=== PATIENT | male | born 1950 | race Caucasian/White ===

== ENCOUNTER 2017-02-24 01:50 | Observation (INO) | payer OTHER ==
[2017-02-24] MEDS ORDERED: NS 1,000 ML IV ONE (01:55)
--- NOTE | 2017-02-24 01:55 | EDPHY ---
H & P HPI/ROS: HPI CHIEF COMPLAINT: Syncope, fall, urinary incontinence HISTORY OF PRESENT ILLNESS: Patient very pleasant 67-year-old male significant past medical history afk-ixskmfs-yufxrneee diabetes however does not take any diabetes medications, who presents to the emergency room by EMS upon arrival he has a GCS 15 alert or x4. He was found to be lying supine in the middle of his family room hard floors he is unsure exactly how he arrived on the ground. Patient tells me that he has no recollection of the events. Woke up lying on his back. He does not remember anything that happened. He denies preceding symptoms specifically denies chest pain, shortness of breath, palpitations, headache, numbness or tingling or focal weakness. Upon arrival here in the emergency room is a GCS 15 is alert and orient x4 he is in a cervical collar. It is stated by EMS his blood sugars over 400. Patient has no complaints. He has obvious facial trauma with a swollen nose. He also noted be urinary incontinence. No history of syncope, PE, ACS. Patient does tell me that he does have a history of angina, also he drinks a bottle wine fairly often he did have an entire bottle wine this evening. Also endorses sometimes medical marijuana. He does tell me over the past month he has had some frequent angina pain in his chest however non in the past 48 hours. Past Medical History: Nvi-flbhjgb-rvvdbfhag diabetes, angina Past Surgical History: No recent surgical history Social History: Endorses frequent alcohol use includes a bottle of wine last bottle of wine this evening and then 2 days ago, medical marijuana, denies tobacco or other illicit drugs Family History: Noncontributory ROS REVIEW OF SYSTEMS: A comprehensive 10 point review of systems is otherwise negative aside from elements mentioned in the history of present illness. Exam Constitutional triage nursing summary reviewed, vital signs reviewed, awake/ alert. Noted be urinary Contin. Eyes normal conjunctivae and sclera, EOMI, PERRLA. HENT head/neck: patient is in a cervical collar, no midline cervical spine pain, head exam is atraumatic except for nasal bridge swelling and dry blood in both nares, no septal hematoma on exam, normal inspection, moist mucus membranes, no epistaxis, neck supple/ no meningismus, no raccoon eyes. Respiratory clear to auscultation bilaterally, normal breath sounds, no respiratory distress, no wheezing. Cardiovascular rate normal, regular rhythm, no murmur, no edema, distal pulses normal. Gastrointestinal soft, non-tender, no rebound, no guarding, normal bowel sounds, no distension, no pulsatile mass. Genitourinary no CVA tenderness. Musculoskeletal no midline vertebral tenderness, full range of motion, no calf swelling, no tenderness of extremities, no meningismus, good pulses, neurovascularly intact. Skin pink, warm, & dry, no rash, skin atraumatic. Neurologic awake, alert and oriented x 3, AAOx3, moves all 4 extremities equally, motor intact, sensory intact, CN II-XII intact, normal cerebellar, normal vision, normal speech. Psychiatric normal mood/affect. Heme/Lymph/Immune no lymphadenopathy. Differential Diagnosis: Includes but is not limited to in a particular order: Vasovagal syncope, orthostatic syncope, seizure, dehydration, electrolyte disturbance, closed head injury, stroke, brain bleed, cardiac arrhythmia Medical Decision Making: Plan for this patient IV will be established obtain blood work, patient be placed on full patient monitor he will need EKG, cardiac marker, will have a CT scan head, neck, face he will need a chest x-ray. Will be hydrated. We will check a blood sugar. Given this patient had a unwitnessed syncopal episode does not know what happened urinary incontinence with facial trauma most likely he will need to stay overnight for further evaluation. Re-evaluation: 0249AM: Patient's serum glucose noted to be 400. No acidosis specifically bicarb is normal. He will be hydrated with normal saline 1st L been given 2nd L been ordered. Alcohol level is pending. CT scan of the head without IV contrast The results of the study are negative The study was read by Dr. Langley I viewed the images myself on the PACS system. CT scan of the cervical spine without IV contrast. The results of the study are DJD, Calcifications of carotids The study was read by Dr. Langley . I viewed the images myself on the PACS system. CT scan of the maxillofacial without IV contrast. The results of the study are Nasal bone fracture. The study was read by Dr. Langley I viewed the images myself on the PACS system. ED x-ray chest one view: Negative for acute cardiopulmonary disease. EKG interpretation by me on record in [facility] system. Impression time of EKG 2:00 a.m., this is sinus tachycardia rate of 100, otherwise no acute ischemic changes appreciated specifically no ST elevation, ST depression T-wave abnormalities. No signs of cardiac arrhythmia no prolonged intervals. 0302:Re-evaluation at this time resting comfortably. No complaints at this time. Patient need to be admitted for syncope with urinary incontinence without a great explanation. Is also noted alcohol levels close to 300. His blood sugars close to 400 without any signs of DKA. Reason for admission is uncontrolled diabetes, syncope with unexplained cause, also tells me over the past few months he has had worsening angina or chest discomfort. No chest pain the past 48 hours. Troponin negative EKG is nonischemic. CT scan showed only a very small nasal bone fracture otherwise unremarkable CTs. Spoke with the hospitalist service Dr. Jc who agrees to admit this patient for unexplained syncope. This possible syncope is from dehydration hyperglycemia and alcohol intoxication. Source: Patient, EMS Constitutional: Initial Vital Signs Temperature (C) 36.5 C 02/24/17 01:55 Heart Rate 98 02/24/17 01:55 Respiratory Rate 16 02/24/17 01:55 Blood Pressure 172/89 H 02/24/17 01:55 O2 Sat (%) 97 02/24/17 01:55 O2 Delivery Mode Room Air Allergies/Adverse Reactions: Penicillins Allergy (Verified 02/24/17 02:00) Home Medications: Medication Instructions Recorded Metformin HCl [Metformin Hcl Er] 750 mg PO 07/30/11 Aspirin 02/24/17 Medical Decision Making - Data Points Laboratory Results: Laboratory Results 02/24/17 01:45 02/24/17 01:45 02/24/17 02/24/17 02/24/17 02:50 01:45 01:45 WBC RBC Hgb Hct MCV MCH MCHC RDW Plt Count MPV Neut % (Auto) Lymph % (Auto) [place] % (Auto) Eos % (Auto) Baso % (Auto) Nucleat RBC Rel Count Absolute Neuts (auto) Absolute Lymphs (auto) Absolute Monos (auto) Absolute Eos (auto) Absolute Basos (auto) Absolute Nucleated RBC Immature Gran % Immature Gran # PT INR APTT Sodium 142 mEq/L mEq/L (134-144) Potassium 4.0 mEq/L mEq/L (3.5-5.2) Chloride 100 mEq/L mEq/L (97-110) Carbon Dioxide 22 mEq/l mEq/l (22-31) Anion Gap 20 mEq/L H mEq/L (8-16) BUN 16 mg/dL mg/dL (7-23) Creatinine 0.8 mg/dL mg/dL (0.7-1.3) Estimated GFR > 60 Glucose 399 mg/dL H mg/dL (70-100) Calcium 9.7 mg/dL mg/dL (8.5-10.4) Magnesium 1.8 mg/dL mg/dL (1.6-2.3) Total Bilirubin 0.6 mg/dL mg/dL (0.1-1.4) Conjugated Bilirubin 0.4 mg/dL mg/dL (0.0-0.5) Unconjugated Bilirubin 0.2 mg/dL mg/dL (0.0-1.1) AST 21 IU/L IU/L (17-59) ALT 24 IU/L IU/L (21-72) Alkaline Phosphatase 135 IU/L H IU/L (38-126) Creatine Kinase 132 IU/L IU/L (0-224) CK-MB (CK-2) Fraction 3.41 ng/mL H ng/mL (0-3.19) CK-MB (CK-2) % 2.6 % % (0.0-4.0) Creatine Kinase Interp NEGATIVE (NEGATIVE) Troponin I < 0.012 ng/mL ng/mL (0-0.034) NT-Pro-B Natriuret Pep 99 pg/mL pg/mL (0-125) Total Protein 7.2 g/dL g/dL (6.3-8.2) Albumin 4.7 g/dL g/dL (3.5-5.0) Lipase 252.0 IU/L IU/L (23-300) Urine Color Pending Urine Appearance Pending Urine pH Pending Ur Specific [place] Pending Urine Protein Pending Urine Ketones Pending Urine Blood Pending Urine Nitrate Pending Urine Bilirubin Pending Urine Urobilinogen Pending Ur Leukocyte Esterase Pending Ur Culture Indicated? Pending Urine Glucose Pending Ethyl Alcohol 291 mg/dL H mg/dL (0-10) 02/24/17 02/24/17 01:45 01:45 WBC 12.17 10^3/uL H 10^3/uL (3.80-9.50) RBC 4.94 10^6/uL 10^6/uL (4.40-6.38) Hgb 15.0 g/dL g/dL (13.7-17.5) Hct 42.3 % % (40.0-51.0) MCV 85.6 fL fL (81.5-99.8) MCH 30.4 pg pg (27.9-34.1) MCHC 35.5 g/dL g/dL (32.4-36.7) RDW 11.9 % % (11.5-15.2) Plt Count 205 10^3/uL 10^3/uL (150-400) MPV 9.4 fL fL (8.7-11.7) Neut % (Auto) 70.5 % % (39.3-74.2) Lymph % (Auto) 22.4 % % (15.0-45.0) [place] % (Auto) 5.4 % % (4.5-13.0) Eos % (Auto) 0.9 % % (0.6-7.6) Baso % (Auto) 0.2 % L % (0.3-1.7) Nucleat RBC Rel Count 0.0 % % (0.0-0.2) Absolute Neuts (auto) 8.58 10^3/uL H 10^3/uL (1.70-6.50) Absolute Lymphs (auto) 2.72 10^3/uL 10^3/uL (1.00-3.00) Absolute Monos (auto) 0.66 10^3/uL 10^3/uL (0.30-0.80) Absolute Eos (auto) 0.11 10^3/uL 10^3/uL (0.03-0.40) Absolute Basos (auto) 0.03 10^3/uL 10^3/uL (0.02-0.10) Absolute Nucleated RBC 0.00 10^3/uL 10^3/uL (0-0.01) Immature Gran % 0.6 % % (0.0-1.1) Immature Gran # 0.07 10^3/uL 10^3/uL (0.00-0.10) PT 11.9 SEC L SEC (12.0-15.0) INR 0.89 (0.83-1.16) APTT 25.4 SEC SEC (23.0-38.0) Sodium Potassium Chloride Carbon Dioxide Anion Gap BUN Creatinine Estimated GFR Glucose Calcium Magnesium Total Bilirubin Conjugated Bilirubin Unconjugated Bilirubin AST ALT Alkaline Phosphatase Creatine Kinase CK-MB (CK-2) Fraction CK-MB (CK-2) % Creatine Kinase Interp Troponin I NT-Pro-B Natriuret Pep Total Protein Albumin Lipase Urine Color Urine Appearance Urine pH Ur Specific [place] Urine Protein Urine Ketones Urine Blood Urine Nitrate Urine Bilirubin Urine Urobilinogen Ur Leukocyte Esterase Ur Culture Indicated? Urine Glucose Ethyl Alcohol Medications Given: Discontinued Medications Sodium Chloride (Ns) 1,000 mls @ 0 mls/hr IV ONCE ONE PRN Reason: Wide Open Stop: 02/24/17 01:56 Last Admin: 02/24/17 02:18 Dose: 1,000 mls Departure - Departure Disposition: [facility] Inpatient Acute Clinical Impression: Syncope and collapse, Hyperglycemia Alcohol intoxication Qualifiers: Complication of substance-induced condition: uncomplicated Qualified Code(s): F10.120 - Alcohol abuse with intoxication, uncomplicated Urinary incontinence Qualifiers: Urinary Incontinence type: unspecified incontinence Qualified Code(s): R32 - Unspecified urinary incontinence Nasal bone fracture Qualifiers: Encounter type: initial encounter Fracture type: closed Qualified Code(s): S02.2XXA - Fracture of nasal bones, initial encounter for closed fracture Condition: Fair Referrals: Patient,NotPresent [Unknown] - As per Instructions
--- NOTE | 2017-02-24 02:02 | CPEKG ---
Heart Rate: 100 RR Interval: 600 P-R Interval: 164 QRSD Interval: 84 QT Interval: 368 QTC Interval: 475 P Decker: 68 QRS Decker: 37 T Wave Decker: 19 EKG Severity - OTHERWISE NORMAL ECG - EKG Impression: SINUS TACHYCARDIA Electronically Signed By: Kane Hatch 24-Feb-2017 06:46:10
[2017-02-24 02:18] LABS: % IMMATURE GRANULYOCYTES 0.6 % (0.0-1.1); ABSOLUTE IMMATURE GRANULOCYTES 0.07 10^3/uL (0.00-0.10); ADD DIFF? NO; ADD MORPH? NO; ADD SCAN? NO; ATYPICAL LYMPHOCYTE FLAG 0 (0-99); FRAGMENT RBC FLAG 0 (0-99); HEMATOCRIT 42.3 % (40.0-51.0); LEFT SHIFT FLG 0 (0-99); LIPEMIA HEMOLYSIS FLAG 90 (0-99); MEAN CELL HEMOGLOBIN 30.4 pg (27.9-34.1); MEAN CELL HEMOGLOBIN CONCENTR. 35.5 g/dL (32.4-36.7); MEAN CELL VOLUME 85.6 fL (81.5-99.8); MEAN PLATELET VOLUME 9.4 fL (8.7-11.7); PLATELET CLUMPS FLAG 10 (0-99); PLATELET COUNT 205 10^3/uL (150-400); RED BLOOD CELL COUNT 4.94 10^6/uL (4.40-6.38); RED CELL DISTRIBUTION WIDTH 11.9 % (11.5-15.2)
[2017-02-24 02:23] LABS: INR 0.89 (0.83-1.16); PROTIME(PATIENT) 11.9 SEC (12.0-15.0)
[2017-02-24 02:24] LABS: APTT 25.4 SEC (23.0-38.0)
[2017-02-24 02:25] LABS: ALANINE AMINOTRANSFERASE 24 IU/L (21-72); ALBUMIN 4.7 g/dL (3.5-5.0); ALKALINE PHOSPHATASE 135 IU/L (38-126); ANION GAP 20 mEq/L (8-16); ASPARTATE AMINOTRANSFERASE 21 IU/L (17-59); BILIRUBIN,TOTAL 0.6 mg/dL (0.1-1.4); BILIRUBIN-CONJUGATED 0.4 mg/dL (0.0-0.5); BILIRUBIN-UNCONJUGATED 0.2 mg/dL (0.0-1.1); CALCIUM 9.7 mg/dL (8.5-10.4); CARBON DIOXIDE 22 mEq/l (22-31); CHLORIDE 100 mEq/L (97-110); CREATININE 0.8 mg/dL (0.7-1.3); GLOMERULAR FILTRATION RATE > 60; GLUCOSE 399 mg/dL (70-100); MAGNESIUM 1.8 mg/dL (1.6-2.3); SODIUM 142 mEq/L (134-144); TOTAL PROTEIN 7.2 g/dL (6.3-8.2)
[2017-02-24 02:37] LABS: TROPONIN I < 0.012 ng/mL (0-0.034)
[2017-02-24 02:41] LABS: CK-MB INTERPRETATION NEGATIVE (NEGATIVE); CREATINE KINASE-MB FRACTION 3.41 ng/mL (0-3.19)
[2017-02-24 03:02] LABS: ETHANOL SERUM 291 mg/dL (0-10)
[2017-02-24 03:22] LABS: COLOR PALE YELLOW; LEUKOCYTE ESTERASE,URINE NEGATIVE (NEGATIVE); NITRITE,URINE NEGATIVE (NEGATIVE)
[2017-02-24 03:27] LABS: MUCUS TRACE /lpf (NONE-1+)
[2017-02-24] MEDS ORDERED: ONDANSETRON 4 MG/2 ML VIAL IVP PRN (04:15)
[2017-02-24] MEDS ORDERED: ACETAMINOPHEN 325 MG TAB PO PRN (04:15)
[2017-02-24] MEDS ORDERED: ONDANSETRON DISINTEGRATING 4 MG TAB PO PRN (04:15)
[2017-02-24] MEDS ORDERED: LORazepam 0.5 MG TAB PO PRN (04:15)
[2017-02-24] MEDS ORDERED: D50W 25 GM/50 ML SYR IVP PRN (04:15)
[2017-02-24] MEDS ORDERED: NS 1,000 ML IV SCH (04:15)
[2017-02-24] MEDS ORDERED: PROMETHAZINE HCL 25 MG TAB PO PRN (04:15)
[2017-02-24] MEDS ORDERED: oxyCODONE IR 5 MG TAB PO PRN (04:15)
[2017-02-24 07:31] VITALS: RESP 15
--- NOTE | 2017-02-24 07:55 | GHP ---
[f rep st] HISTORY AND PHYSICAL DATE OF ADMISSION: 02/24/2017 CHIEF COMPLAINT: Fall versus syncope. HISTORY OF PRESENT ILLNESS: This is a 67-year-old man, with past medical history of type 2 diabetes as well as sciatic pain and angina, who presents after falling at home and landing on his face and chest. Unfortunately, patient has no recollection of the event itself and only very limited recolle ction of events that followed the actual fall. He notes that he was watching TV and drank a bottle of wine which is not terribly unusual for him, he notes that he drinks about 1 bottle of wine every other day. He denies feeling particularly intoxicated but got up from the couch and the last thing he remembers he was walking towards the kitchen. He has been doing a significant amount of construc tion in his house recently and notes that the kitchen was fairly cluttered with construction materia ls. The next thing he knows, he woke up on the floor, again he has very little memory of this time either but states he has some recollection of having difficulty making his way over to the phone in order to call 911. He does not recall whatsoever the events preceding falling. He denies this ever having happened to him in the past. He denies any current complaints other than pain in his nose f rom where he fell. He does note that he has had issues with chronic angina and that this has been w orse in the last couple of months. He was seen once in the emergency department for similar symptom s back in 2010 and states he has had a work up since then but really is unable to tell me what tests were performed. In terms of his diabetes, he has had complications including retinopathy and perip heral neuropathy. In the past, he has had issues with medication compliance and it sounds as if marley abraham currently he does not regularly see a physician. He also notes that he has had balance issues for some time now. He really has a hard time saying exactly how long that has been but notes that, for instance if he shuts his eyes while in the shower he will fall over. He attributes this to his age . He has been seen by neurology in the past but it sounds like this was for different issues. He d enies any new numbness or weakness. He denies any real change in his vision though he states he has intermittent vision problems that he attributes to his diabetes. He does have some chronic numbnes s in his bilateral feet secondary to his diabetes. PAST MEDICAL HISTORY: 1. Diabetes type 2, uncontrolled. Complications including retinopathy and peripheral neuropathy. 2. Sciatic back pain. 3. Chronic angina. PAST SURGICAL HISTORY: Tonsillectomy. FAMILY HISTORY: Father of an CT at age 38. Mother is alive at age 93 but has health issues th at include colon cancer and breast cancer. Both of these were diagnosed in her 70s or 80s. Had a al mitchell who of complications of type 1 diabetes. SOCIAL HISTORY: Patient is currently retired. He is and he and his spend their time b [facility] and [place], his is currently in [place] working. He has remote history of t obacco use, none currently. He drinks alcohol regularly and fairly heavily-he notes that he drinks 1 bottle of wine every other day. Last drink was this evening. MEDICATIONS: Home medications include Metformin and aspirin. ALLERGIES: Include penicillin. PHYSICAL EXAMINATION: Vital Signs: BP 154/79, heart rate 100, respiratory rate 19, 02 sats 96% on room air, temperature is 36.6. General Appearance: This is a well-developed, well-nourished man. He is awake and alert. He is in no acute distress. Eyes: Anicteric. He has bilateral ecchymosis surrounding his orbits. Nose: Swollen and mildly deformed with lacerations to the surface, orophar ynx is clear. Cardiovascular: RRR, no MRG. Pulmonary: CTA bilaterally, normal work of breathing. Abdomen: Soft, nontender, positive bowel sounds. Extremities: No clubbing, cyanosis or edema. Skin: Warm, dry, well perfused. Neuro/Psych: Patient is oriented and appropriate. His cranial ne rves are intact, strength and sensation are intact and equal bilaterally, rapid alternating movement s are normal and symmetrical, gait was not assessed though patient able to sit up and move around qu ite well independently. CLINICAL DATA: Labs reviewed. Significant for glucose of 399, troponin is less than 0.012, proBNP of 99, white blood cell count of 12.17, hematocrit of 42.3. Coags are within normal limits. Urinal ysis showing 1+ ketones, 1+ blood, 3+ glucose. LFTs are within normal limits. Blood alcohol level on arrival was 191. EKG personally reviewed and interpreted shows sinus tachycardia without clear ischemic changes. Chest x-ray personally reviewed and interpreted showing no acute abnormalities. Head CT showing a mildly depressed nasal fracture and septum. Degenerative change to the C-spine wi thout fracture. Head CT is negative. ASSESSMENT AND PLAN: This is a 67-year-old man with past medical history of diabetes, presenting wi th presumed syncopal event. 1. Syncope. This is presumed based on the history, though patient seems reluctant to believe that. Again, it sounds as if he had no warning and sustained fairly significant injuries including a shirlene al fracture suggesting that he did not have time to prepare himself for this syncope. He is being m onitored on telemetry with serial troponins. Echocardiogram will be performed in the morning. [place] ld his initial evaluation be unremarkable and he be safe for discharge, would recommend that he be d ischarged with a Holter monitor. Again, I have a high concern for cardiogenic syncope given the his tory of no warning whatsoever. However, clearly this did occur while patient was significantly into xicated, so his history is limited secondary to that. 2. Angina. Patient complaining of several months of worsening chest pain. He notes this has been present for quite some time. In looking back, there is an ER note in 2010 where he complained of th is as well. EKG reviewed is reassuring. Again, work up including tele monitoring, serial troponins and echocardiogram to be performed. Pending results of echocardiogram, further ischemic work up ve rsus followup with cardiology likely warranted. 3. Uncontrolled diabetes with complications including retinopathy and neuropathy. He is on Metform in only as an outpatient and presents with a glucose of 400. Start sliding scale, obtain hemoglobin A1c. Will start diabetic diet and ask for a dietary consultation. 4. Gait instability. Patient complaining of fairly longstanding history of gait instability and torsten chen describing what sounds like a positive Romberg. Query if this is secondary to his peripheral neuropathy and perhaps associated proprioceptive dysfunction. Other consideration would be for alco hol related cerebellar changes and/or Wernicke's. At the time of my evaluation, patient does seem t o be mentating normally without any extraocular abnormalities, so will hold off on high dose thiamin e. Will start regular multivitamin, thiamine, folate, however. Will ask PT/OT to evaluate and cons ider further evaluation pending assessment of his gait. Again, this was not assessed as he was note d to be unstable in the ER and they did have concerns for him falling. 5. Alcohol abuse. Again, patient presenting with a BAL of 291 and a history of drinking a full bot tle of wine every other day. He currently appears to be sober and his last drink was only several h ours ago. Will monitor for signs and symptoms of withdrawal. He denies ever having withdrawal in t he past. 6. Question rhabdomyolysis. Patient noted to have 1+ blood without red blood cells on UA in the se tting of having been down for an unknown period of time. Will obtain a creatinine kinase level and monitor. 7. Leukocytosis. I suspect this is stress response. He does not have any signs or symptoms of inf ection. 8. Hypertension. Blood pressure mildly elevated in the setting of being in the ER. Suspect this i s likely stress related and will monitor. He is not on any antihypertensives at baseline. 9. Nasal fracture. This is mildly depressed nasal fracture and septum noted on face CT. Reviewed with ER doc and likely does not require any intervention a does not appear to be malaligned. He macario uld likely followup with ENT as an outpatient, however. If he has acute issues while in house, this could be arranged as an inpatient instead. 10. Disposition. Observation status. I expect a less than 48 hour stay for evaluation and managem ent of above. 11. Patient's is under my care. All records reviewed and summarized in HPI and past medical histor y. Care plan reviewed with the ER physician including plans for work up with syncope. /[id number]/MODL
[2017-02-24 07:58] LABS: TROPONIN I < 0.012 ng/mL (0-0.034)
--- NOTE | 2017-02-24 08:11 | CPEKG ---
Heart Rate: 108 RR Interval: 556 P-R Interval: 156 QRSD Interval: 78 QT Interval: 344 QTC Interval: 461 P [place]: 70 QRS [place]: 53 T Wave [place]: -60 EKG Severity - BORDERLINE ECG - EKG Impression: SINUS TACHYCARDIA EKG Impression: DIFFUSE ST-T WAVE ABNORMALITIES. CONSIDER ISCHEMIA--NEW SINCE FEBRUARY 24, 2017, EKG Impression: 2:00 Electronically Signed By: Kurt Valentino 24-Feb-2017 08:31:41
[2017-02-24] MEDS: INSULIN LISPRO 100 UNIT/ML SC SCH ×2 (08:44→13:11)
[2017-02-24] MEDS ORDERED: THIAMINE HCL 100 MG TAB PO SCH (09:00)
[2017-02-24] MEDS ORDERED: FOLIC ACID 1 MG TAB PO SCH (09:00)
[2017-02-24] MEDS ORDERED: MULTIVITAMINS 1 EACH TAB PO SCH (09:00)
[2017-02-24] MEDS ORDERED: ENOXAPARIN 40 MG/0.4 ML SYR SC SCH (09:00)
--- NOTE | 2017-02-24 10:30 | ECHO ---
[id number] + + [address] : : [place] [address] : : [phone] + Adult Echocardiographic Report + --------+ :Name: CAITLIN LACEY HStudy Date: 02/24/2017 08:14 AM : : Hospital Admission Number: [id number] Locat ion: 216: :: 1950 Gender: Male Height: 70 in : :Age: 67 yrs Race: WH Weight: 180 l b : :Reason For Study: syncope : : BSA: 2.0 mete rs2 : + --------+ MMode/2D Measurements \T\ Calculations IVSd: 1.3 cm LVIDd: 4.1 cm FS: 46.2 % Ao root diam: LVPWd: 1.3 cm LVIDs: 2.2 cm EDV(Teich): 3.7 cm 75.6 ml LA dimension: ESV(Teich): 3.7 cm 16.6 ml EF(Teich): 78.0 % LVLd ap4: 8.3 cm SV(MOD-sp4): EDV(MOD-sp4): 58.0 ml 85.0 ml LVLs ap4: 6.1 cm ESV(MOD-sp4): 27.0 ml EF(MOD-sp4): 68.2 % Normal Measurement Values: + + :LVIDd (3.5-5.7cm) IVSd (0.6-1.1cm) LVPWd (0.6-1.1cm) Aortic Root (2.0-3.7cm)Left Atrium (1.5-4.0cm): :LV Vol(d) (76-115ml) LV Vol(s) (29-48ml) Ejec Fraction (50-65%)PV Alan (0.6- 1.2m/s) TV Alan (0.4-1.0m/s) : :MV E Alan (0.8-1.0m/s)MV A Alan (0.3-1.0m/s)LVOT Alan (0.7-1.2m/s) Asc Ao Alan ( 0.9-1.8m/s) : + + Doppler Measurements \T\ Calculations MV E max alan: 69.6 cm/sec Ao V2 max: 133.7 cm/sec MV A max alan: 101.7 cm/sec Ao max P.1 mmHg MV E/A: 0.68 Left Ventricle The left ventricle is normal in size and function. There is mild concentric left ventricular hypertrophy. The left ventricle is hyperdynamic. Ejection Fraction = 70-75%. There is Doppler evidence for diastolic dysfunction. No regional wall motion abnormalities noted. Right Ventricle The right ventricle is normal in size and function. Atria The left atrial size is normal. Right atrial size is normal. Mitral Valve The mitral valve is normal in structure and function. There is trace mitral regurgitation. Tricuspid Valve Normal tricuspid valve. No tricuspid regurgitation. Aortic Valve The aortic valve is trileaflet. The aortic valve opens well. There is no aortic stenosis. There is no aortic insufficiency. Pulmonic Valve The pulmonic valve is not well visualized. trace to mild pulmonic valvular regurgitation. Great Vessels The aortic root is normal size. Pericardium/Pleural There is no pericardial effusion. Conclusion A complete two-dimensional transthoracic echocardiogram was performed (2D, M-mode, Doppler and color flow Doppler). (1) Left ventricular systolic ejection fraction was normal (70%) - normal wall motion (2) No left ventricular hypertrophy (3) Diastolic dysfunction was present (4) Normal right ventricular size and function (5) Normal atrial dimensions (6) Trace mitral regurgitation (7) Trileaflet aortic valve without sclerosis or insufficiency (8) Grossly normal tricuspid valve (9) Poor visualization of the pulmonic valve (10) No comparison echocardiograms Final Reading Physician: Victorino Hercules signed on 02/24/2017 10:29 AM Ordering Physician: Zev Jc Performed By: Irina José RDCS
[2017-02-24 11:33] VITALS: BP 142/86; PULSE 102; TEMP 99.7; O2SAT 95
[2017-02-24] MEDS ORDERED: ASPIRIN EC 325 MG TAB PO PRN (11:58)
--- NOTE | 2017-02-24 12:39 | GDS ---
[f rep st] DISCHARGE SUMMARY CHIEF COMPLAINT: 1. Syncope. 2. Mild nasal/septum fracture. 3. Uncontrolled diabetes. 4. Sciatic back pain. 5. Chronic angina. 6. Alcohol abuse. 7. Gait instability. HISTORY: This is a 67-year-old man with type 2 diabetes, sciatic pain, peripheral neuropathy, and angina, presenting after falling at home and landing on his face and chest. He has no recollection of the event itself, and limited recall of the events following. He knows that he was watching TV and drank a bottle of wine, which is not unusual for him, which he drinks every other day. He got up from the couch and the last thing he remembers was walking towards the kitchen. 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 The next thing he knew he awoke on the floor, and made his way to call 911. He denies any prodromal symptoms including chest pain , shortness of breath, nausea, vomiting, or palpitations, but really cannot recall. He has had more imbalance lately, which he attributes to his peripheral neuropathy. He says he has chronic angina but cannot really elicit angina that occurs after awaking in the morning. It is relieved after a few minutes or aspirin. This pain does not change with exertion, and does not have any associated symptoms. He states that he has had a cardiac workup in the past that was negative, but could not tell me which tests. HOSPITAL COURSE BY PROBLEM: 1. Syncope. suspect due to alcohol intoxication. There is no evidence of arrhythmia or ischemia on EKG. Troponin and EKG were negative. Echocardiogram showed mild diastolic dysfunction, but no valvular or wall motion abnormalities. I recommend that patient follow up with his PCP for followup. Holter outpatient to monitor arrhythmia. 2. Chronic angina: this has been going on for several months. It is unusual that it occurs in the morning when awakening, and is not associated with exertion. An EKG was negative, as well as troponin, no evidence of wall motion abnormality on echocardiogram. The patient can follow up with his PCP to consider an outpatient stress test. 3. Uncontrolled diabetes with complications, including retinopathy and neuropathy: He is only on metformin as an outpatient. He did have a mild anion gap that has since resolved. An A1c is pending. Likely warrants insulin therapy; he should FU with his PCP. 4. Mild nasal fracture, secondary to fall. Will FU with Dr. Lozano in clinic next week. Advised to not blow nose and use saline nasal spray. 5. Alcohol abuse: counseled on cessation. He wants to quit and has done AA in the past. DISPOSITION: Patient is stable for discharge. FOLLOWUP: 1. Primary care physician. 2. Holter monitor. 3. PCP, for diabetes control and possible outpatient cardiac stress. /[id number]/MODL MTDD
[2017-02-24 13:18] LABS: ANION GAP 14 mEq/L (8-16); CALCIUM 9.1 mg/dL (8.5-10.4); CARBON DIOXIDE 19 mEq/l (22-31); CHLORIDE 107 mEq/L (97-110); CREATININE 0.7 mg/dL (0.7-1.3); GLOMERULAR FILTRATION RATE > 60; GLUCOSE 292 mg/dL (70-100); POTASSIUM 4.1 mEq/L (3.5-5.2); SODIUM 140 mEq/L (134-144)
[2017-02-24] MEDS ORDERED: NON-FORMULARY NEW DRUG (Metformin Hcl [Metformin Hcl Er] 1,000 MG) PO SCH (21:00)
[2017-02-24] MEDS ORDERED: metFORMIN SR 500 MG TAB PO SCH (21:00)
[2017-02-25] MEDS ORDERED: Herbals/Supplements -Info Only PO SCH (09:00)
[2017-02-26 01:21] LABS: HEMOGLOBIN A1C 11.4 % (4.0-6.0)
== END 2017-02-24 15:17 | disposition home or self-care (01) ==
LOC: EDUNIT# → INTOOBSV 03:09 → F2W 03:42
PROVIDERS: ADMIT Internal Medicine; ATTEND Internal Medicine
DX: R55 Syncope and collapse (principal); S02.2XXA Fracture of nasal bones, initial encounter for closed fracture; F10.129 Alcohol abuse with intoxication, unspecified; Y90.8 Blood alcohol level of 240 mg/100 ml or more; E11.40 Type 2 diabetes mellitus with diabetic neuropathy, unspecified; E11.319 Type 2 diabetes mellitus with unspecified diabetic retinopathy without macular edema; R26.9 Unspecified abnormalities of gait and mobility; I20.9 Angina pectoris, unspecified; M54.40 Lumbago with sciatica, unspecified side; M50.922 Unspecified cervical disc disorder at C5-C6 level; W01.10XA Fall on same level from slipping, tripping and stumbling with subsequent striking against unspecified object, initial encounter; Y92.008 Other place in unspecified non-institutional (private) residence as the place of occurrence of the external cause; Z82.49 Family history of ischemic heart disease and other diseases of the circulatory system; Z88.0 Allergy status to penicillin; Z79.84 Long term (current) use of oral hypoglycemic drugs; Z79.82 Long term (current) use of aspirin
CPT/HCPCS: 70450; 70486; 71010; 72125; 93005; 93306; 96360; 97161; 97165; 99285; 99408; G0378; G8978; G8979; G8980; G8987; G8988; G0397; G0480; J1650; J1815

== ENCOUNTER 2017-10-26 15:38 | Emergency (ER) | payer OTHER ==
[2017-10-26 15:43] VITALS: TEMP 98.2
[2017-10-26] MEDS ORDERED: CEPHALEXIN 500 MG CAP PO ONE (16:11)
--- NOTE | 2017-10-26 16:15 | EDPHY ---
H & P Time Seen by Provider: 10/26/17 16:03 HPI/ROS: CHIEF COMPLAINT: Left 2nd and 3rd digit laceration versus circular soft HISTORY OF PRESENT ILLNESS: 67-year-old [id number] male arrives via private vehicle complaining of acute injury to his right 2nd and 3rd digit after he was using a circular saw, holding a piece of wood from underneath when the blade impacted these digits. His tetanus is up-to-date. He is complaining of decreased sensation to this area. No other injury. This was accidental. PHYSICAL EXAM (Prior to examination, patient consented to physical exam, hands were washed and my usual and customary physical exam procedures followed) 1) GENERAL: Well-developed, well-nourished, alert and oriented. Appears uncomfortable 2) HEAD: Normocephalic 3) HEENT: sclera anicteric 4) LUNGS: Breathing comfortably. 5) MUSCULOSKELETAL: Left 2nd digit: Patient has tissue avulsion to the distal phalanx dorsal aspect with osseous fragments palpable in the flap. A piece of tissue is attached measuring 2 mm to the remainder of the finger. I am able to palpate deep osseous fragments on the proximal portion of the wound. Left 3rd digit: 2.5 cm laceration at the DIP joint palmar aspect, irregular. FDP dysfunction noted. 6) NEUROLOGIC: Decreased sensation distally to both affected digit Smoking Status: Former smoker Constitutional: Initial Vital Signs Temperature (C) 36.8 C 10/26/17 15:42 Heart Rate 78 10/26/17 15:42 Respiratory Rate 18 10/26/17 15:42 Blood Pressure 170/100 H 10/26/17 15:42 O2 Sat (%) 97 10/26/17 15:42 O2 Delivery Mode Room Air Allergies/Adverse Reactions: erythromycin base Allergy (Verified 02/24/17 08:52) Other-Enter Comments Penicillins Allergy (Verified 02/24/17 08:52) Rash Home Medications: Medication Instructions Recorded Cephalexin [Keflex] 500 mg PO QID 7 Days cap 10/26/17 Hydrocodone/APAP 5/325 [[place] 1 tab PO Q6 PRN #10 tab 10/26/17 5/325 (RX)] MDM/Departure - MDM Procedures: Procedure: Laceration repair. I explained the indications, risks and benefits for both laceration repair and anesthetic administration. Verbal consent was obtained from the patient and parent. The laceration on the location was anesthetized using 0.5% bupivicaine without epinephrine digital nerve block. After anesthetic administered the patient was observed for a period of time and had no apparent adverse effects. The wound was cleaned, prepped, draped in normal sterile fashion and explored to its base. The 2nd digit was closed with 7 interrupted sutures 5 0 Prolene sutures reapproximating tissue edges. The 3rd digit was closed with 4 simple interrupted 5 O Prolene sutures reapproximating tissue edges. The wound repair was complex. The procedure was performed by myself. Patient has been informed that scarring will occur, although efforts have been made to minimize this. Procedure: Splint Orthoglass hand/fingersplint was applied by ER auto glass technician. After application of the splint I returned and re-examined the patient. The splint was adequately immobilizing the joint and distal to the splint the patient's circulation and sensation were intact. Patient shows no signs of compartment syndrome. Was given orthopedic precautions. Medications Given: Discontinued Medications Cephalexin HCl (Keflex) 500 mg PO EDNOW ONE PRN Reason: Protocol Stop: 10/26/17 16:12 Last Admin: 10/26/17 16:18 Dose: 500 mg Diphtheria/Tetanus/Acell Pertussis (Boostrix) 0.5 ml IM .ONCE ONE Stop: 10/26/17 17:02 Last Admin: 10/26/17 17:05 Dose: 0.5 ml ED Course/Re-evaluation: Care of patient under supervision of secondary supervising physician Dr Case . This patient has been re-evaluated with serial exams. Consultation with on- call hand surgery Dr. Rebel Lockett at 4:50 p.m. who recommended ER irrigation , wound edge reapproximation, protecting the underlying tissue, see the patient 1st thing Sunday morning (today is Sunday night), tetanus update, antibiotics. . Patient has been informed that the long-term viability of the digits is not completely clear at this time and therefore follow-up with Hand surgery has been emphasized on numerous instances. His tetanus has been updated He is started on prophylactic antibiotics. Patient feels comfortable with this plan. Usual and customary discharge precautions instructions provided. All questions and concerns addressed by myself. - Depart Disposition: Home, Routine, Self-Care Clinical Impression: Laceration of left hand involving tendon Qualifiers: Encounter type: initial encounter Qualified Code(s): S61.412A - Laceration without foreign body of left hand, initial encounter Condition: Good Instructions: Care For Your Stitches (ED), Laceration (ED) Additional Instructions: Return to the ER if you develop redness, swelling, discharge, warmth to the wound, red streaks going up your arm, or any other symptoms that concern you. Prescriptions: Cephalexin [Keflex] 500 mg PO QID 7 Days cap Hydrocodone/APAP 5/325 [[place] 5/325 (RX)] 1 tab PO Q6 PRN #10 tab PRN Reason: Pain, Severe Referrals: Rebel Lockett MD [Medical Doctor] - 10/29/17 9:00 am (Call Dr. Lockett's office 1st thing Sunday to be seen Sunday. He has been made aware of your situation. )
[2017-10-26] MEDS ORDERED: TDAP ADULT 0.5 ML INJ (BOOSTRIX) IM ONE (17:01)
[2017-10-26 17:49] VITALS: BP 177/86; PULSE 82; RESP 14; O2SAT 96
== END 2017-10-26 17:47 | disposition home or self-care (01) ==
PROC: 0HQGXZZ Repair Left Hand Skin, External Approach (ICD-10-PCS; principal; 2017-10-26)
DX: S61.211A Laceration without foreign body of left index finger without damage to nail, initial encounter (principal); S61.213A Laceration without foreign body of left middle finger without damage to nail, initial encounter; Z23 Encounter for immunization; Z87.891 Personal history of nicotine dependence; W27.0XXA Contact with workbench tool, initial encounter; Y99.8 Other external cause status; Y93.89 Activity, other specified

== ENCOUNTER 2018-10-13 14:14 | Observation (INO) | payer OTHER ==
--- NOTE | 2018-10-13 14:39 | EDPHY ---
H & P Time Seen by Provider: 10/13/18 14:26 HPI/ROS: Chief complaint. Chest pain HPI. Patient is a 68-year-old male who presents emergency department with chest pain off and on for the past 2-3 months. He also has episodes of shortness of breath both without and with the chest discomfort. He saw his PCP 3 weeks ago who recommended the patient see a data control clerk supervisor. However the patient and his went to [place] and then his mother fell and so circumstances of not yet let him see data control clerk supervisor. When he has the chest discomfort he describes as achy left chest radiating through to his left back. Occasional left arm pain. Chest pain seems to be more at night with lying down. Not really associated with exertion. No fever cough. No unusual leg pain or swelling. Previous chest pain workup that was attributed to stress in 2002 ROS 10 systems were reviewed and negative with the exception of the elements mentioned in the history of present illness Past Medical/Surgical History: Insulin-dependent diabetes Family history father of an [place] at age 38 Social History: , nonsmoker, no alcohol Smoking Status: Never smoked Physical Exam: General Appearance: Alert well-developed male mild distress vital signs significant for blood pressure 200/94 Eyes: Pupils equal and round no pallor or injection. ENT, Mouth: Mucous membranes are moist. Respiratory: There are no retractions, lungs are clear to auscultation. Cardiovascular: Regular rate and rhythm. Gastrointestinal: Abdomen is soft and nontender, no masses, bowel sounds normal. Neurological: Awake and alert, sensory and motor exams grossly normal. Skin: Warm and dry, no rashes. Musculoskeletal: Neck is supple nontender. Extremities symmetrical, full range of motion. Psychiatric: Patient is oriented X 3, there is no agitation. Constitutional: Initial Vital Signs Temperature (C) 36.4 C 10/13/18 14:20 Heart Rate 86 10/13/18 14:20 Respiratory Rate 16 10/13/18 14:20 Blood Pressure 200/94 H 10/13/18 14:20 O2 Sat (%) 97 10/13/18 14:20 O2 Delivery Mode Room Air Allergies/Adverse Reactions: erythromycin base Allergy (Verified 02/24/17 08:52) Other-Enter Comments Penicillins Allergy (Verified 02/24/17 08:52) Rash Home Medications: Medication Instructions Recorded Humalog 11/18/18 Medical Decision Making - Diagnostics EKG Interpretation: EKG interpreted by me shows normal sinus rhythm normal interval. Left axis deviation. QRS is otherwise normal there is no significant ST elevation or depression. There are lateral T-wave flattening and slight inversion. No arrhythmia. The rate is [address]-T segments were present in the previous EKG in 2017 that was worrisome for ischemia New axis change in lead 3 Procedures: IV normal saline, monitor ED Course/Re-evaluation: Re-evaluation at 3:35 p.m. Patient is stable. He and I discussed imaging and lab an EKG results. We discussed heart score risks. I have recommended admission. He expresses understanding and agreement I consulted discussed case with Dr. Jc, hospitalist who agrees to the admission Differential Diagnosis: Heart score history-1, EKG -1, age-to, risk factors for heart disease -1, troponin 0. Total risk score is 5 I am concerned about acute coronary syndrome. No evidence for pneumonia or congestive heart failure or pulmonary embolus - Data Points Laboratory Results: Laboratory Results 10/13/18 14:31 10/13/18 14:31 10/13/18 10/13/18 10/13/18 14:36 14:31 14:31 WBC RBC Hgb Hct MCV MCH MCHC RDW Plt Count MPV Neut % (Auto) Lymph % (Auto) [place] % (Auto) Eos % (Auto) Baso % (Auto) Nucleat RBC Rel Count Absolute Neuts (auto) Absolute Lymphs (auto) Absolute Monos (auto) Absolute Eos (auto) Absolute Basos (auto) Absolute Nucleated RBC Immature Gran % Immature Gran # D-Dimer < 0.27 ug/mLFEU ug/mLFEU (0.00-0.50) Sodium 140 mEq/L mEq/L (135-145) Potassium 4.2 mEq/L mEq/L (3.3-5.0) Chloride 105 mEq/L mEq/L (97-110) Carbon Dioxide 27 mEq/l mEq/l (22-31) Anion Gap 8 mEq/L mEq/L (6-14) BUN 21 mg/dL mg/dL (7-23) Creatinine 0.9 mg/dL mg/dL (0.7-1.3) Estimated GFR > 60 Glucose 246 mg/dL H mg/dL (70-100) Calcium 9.5 mg/dL mg/dL (8.5-10.4) POC Troponin I 0.00 ng/mL ng/mL (0.00-0.08) NT-Pro-B Natriuret Pep 188 pg/mL H pg/mL (0-125) 10/13/18 14:31 WBC 8.09 10^3/uL 10^3/uL (3.80-9.50) RBC 4.90 10^6/uL 10^6/uL (4.40-6.38) Hgb 15.0 g/dL g/dL (13.7-17.5) Hct 42.3 % % (40.0-51.0) MCV 86.3 fL fL (81.5-99.8) MCH 30.6 pg pg (27.9-34.1) MCHC 35.5 g/dL g/dL (32.4-36.7) RDW 12.8 % % (11.5-15.2) Plt Count 218 10^3/uL 10^3/uL (150-400) MPV 9.1 fL fL (8.7-11.7) Neut % (Auto) 63.0 % % (39.3-74.2) Lymph % (Auto) 25.8 % % (15.0-45.0) [place] % (Auto) 9.4 % % (4.5-13.0) Eos % (Auto) 1.1 % % (0.6-7.6) Baso % (Auto) 0.5 % % (0.3-1.7) Nucleat RBC Rel Count 0.0 % % (0.0-0.2) Absolute Neuts (auto) 5.09 10^3/uL 10^3/uL (1.70-6.50) Absolute Lymphs (auto) 2.09 10^3/uL 10^3/uL (1.00-3.00) Absolute Monos (auto) 0.76 10^3/uL 10^3/uL (0.30-0.80) Absolute Eos (auto) 0.09 10^3/uL 10^3/uL (0.03-0.40) Absolute Basos (auto) 0.04 10^3/uL 10^3/uL (0.02-0.10) Absolute Nucleated RBC 0.00 10^3/uL 10^3/uL (0-0.01) Immature Gran % 0.2 % % (0.0-1.1) Immature Gran # 0.02 10^3/uL 10^3/uL (0.00-0.10) D-Dimer Sodium Potassium Chloride Carbon Dioxide Anion Gap BUN Creatinine Estimated GFR Glucose Calcium POC Troponin I NT-Pro-B Natriuret Pep Point of Care Test Results: Chemistry 10/13/18 14:36 POC Troponin I 0.00 ng/mL ng/mL (0.00-0.08) Departure - Departure Disposition: [facility] Inpatient Acute Clinical Impression: Chest pain Qualifiers: Chest pain type: unspecified Qualified Code(s): R07.9 - Chest pain, unspecified Condition: Good Referrals: AAMIR BATES [Primary Care Provider] - As per Instructions
--- NOTE | 2018-10-13 14:53 | CPEKG ---
Test Reason : OPEN Blood Pressure : / mmHG Vent. Rate : 085 BPM Atrial Rate : 085 BPM P-R Int : 166 ms QRS Dur : 085 ms QT Int : 388 ms P-R-T Axes : 042 -02 -24 degrees QTc Int : 462 ms Sinus rhythm Borderline T wave abnormalities Confirmed by Kurt Navarro ([id number]) on 10/13/2018 2:52:58 PM Referred By: Confirmed By:Kurt Navarro
[2018-10-13 14:57] LABS: PLATELET COUNT 218 10^3/uL (150-400)
[2018-10-13] MEDS ORDERED: PROMETHAZINE HCL 25 MG/ML INJ IVP PRN (16:35)
[2018-10-13] MEDS ORDERED: ACETAMINOPHEN 325 MG TAB PO PRN (16:35)
[2018-10-13] MEDS ORDERED: HYDROCODONE/APAP 5/325 TAB PO PRN (16:35)
[2018-10-13] MEDS ORDERED: oxyCODONE IR 5 MG TAB PO PRN (16:35)
[2018-10-13] MEDS ORDERED: NITROGLYCERIN 0.4 MG BTL SL PRN (16:35)
[2018-10-13] MEDS ORDERED: ONDANSETRON DISINTEGRATING 4 MG TAB PO PRN (16:35)
[2018-10-13] MEDS ORDERED: ONDANSETRON 4 MG/2 ML VIAL IVP PRN (16:35)
[2018-10-13] MEDS ORDERED: D50W 25 GM/50 ML SYR IVP PRN (16:39)
--- NOTE | 2018-10-13 16:57 | ASMTCMCOM ---
CM Note CM Note Notes: Pt presented to the ED for chest pain for the past 2-3 months. Pt also reports SOB. Pt saw his PCP Dr Júnior Wilson about [address] Wilson had recommended he followup with a control and recovery special tactics but pt has not been able to followup yet. Pt lives w/his , Bessy; they recently returned from a trip to [place]. Pt admitted for further cardiac workup, pt to have stress test tomorrow. CM to follow. Date Signed: 10/13/2018 04:56 PM Electronically Signed By:Soco Starr RN
--- NOTE | 2018-10-13 16:58 | PDGENHP ---
History and Physical - Chief Complaint chest pain - History of Present Illness 68 yo M with PMH that includes insulin dependent DM, untreated HTN presenting with complaints of chest pain. He notes it has been present for at least 2-3 months although in review of prior records he has complained of chronic "angina " in the past as well. He notes he has pain over his left pectoral region, occasionally it radiates to the back and is described as dull and about a 2-3/ 10 in intensity. He notes when it comes on it can last all day, it has been present all day today. He denies any alleviating or aggravating factors but does notice that it seems to be worse at night when he is lying in bed. He has had nausea for the past 3 days as well as intermittent sob. His notes that yesterday while climbing stairs she noted he was ashen and exhausted which is not typical for him. He states in the past he believes the pain he was having were related to neuropathic pain related to his DM which he gets essentially all over his body. He feels that this pain also may be related to that. His PCP has been wanting to get him in to see a mail superintendent but that has not happened yet. He has had a treadmill stress test about 15 years ago and wore an event monitor for 1 month following a hospitalization for syncope one year ago and he states as far as he knows those tests were normal. History Information - Allergies/Home Medication List Allergies/Adverse Reactions: erythromycin base Allergy (Verified 10/13/18 16:08) Other-Enter Comments Penicillins Allergy (Verified 10/13/18 16:08) Rash Home Medications: Insulin Glargine,Hum.rec.anlog [Basaglar Kwikpen U-100] 15 - 17 unit SQ HS 10/13 [Last Taken 10/12/18] Insulin Lispro [Humalog] 10 - 15 unit SQ BIDAC 10/13/18 [Last Taken Unknown] I have personally reviewed and updated: family history, medical history, social history, surgical history - Past Medical History diabetes type 2 (poorly controlled in the past with retinopathy/peripheral neuropathy), hypertension (untreated) Additional medical history: gait instability. etoh abuse. sciatic pain - Surgical History Additional surgical history: tonsillectomy - Family History Positive for: cancer (mother alive in her 90s, colon and breast cancer), father with history of CAD younger than 55 (father of [place] at 38) Additional family history: 1 brother of pancreatic cancer. another brother alive but with lung cancer - Social History Smoking Status: Former smoker (5 pack years 50 years ago) Alcohol Use: Heavy Drug Use: None Additional social history: Review of Systems Review of Systems: ROS: 10pt was reviewed & negative except for what was stated in HPI & below Physical Exam Physical Exam: Temp Pulse Resp BP Pulse Ox 36.9 C 72 16 198/99 H 96 10/13/18 16:33 10/13/18 16:33 10/13/18 16:33 10/13/18 16:33 10/13/18 16:33 Constitutional: no apparent distress, appears nourished Eyes: PERRL, anicteric sclera Ears, Nose, Mouth, Throat: moist mucous membranes, hearing normal Cardiovascular: regular rate and rhythym, no murmur, rub, or gallop, No edema Respiratory: no respiratory distress, no rales or rhonchi Gastrointestinal: normoactive bowel sounds, soft, non-tender abdomen Genitourinary: no bladder tenderness Skin: warm, normal color Musculoskeletal: no muscle tenderness Neurologic: AAOx3 Psychiatric: interacting appropriately, not anxious, not encephalopathic Lab Data & Imaging Review 10/13/18 14:31 10/13/18 14:31 WBC 8.09 10^3/uL (3.80-9.50) 10/13/18 14:31 RBC 4.90 10^6/uL (4.40-6.38) 10/13/18 14:31 Hgb 15.0 g/dL (13.7-17.5) 10/13/18 14:31 Hct 42.3 % (40.0-51.0) 10/13/18 14:31 MCV 86.3 fL (81.5-99.8) 10/13/18 14:31 MCH 30.6 pg (27.9-34.1) 10/13/18 14:31 MCHC 35.5 g/dL (32.4-36.7) 10/13/18 14:31 RDW 12.8 % (11.5-15.2) 10/13/18 14:31 Plt Count 218 10^3/uL (150-400) 10/13/18 14:31 MPV 9.1 fL (8.7-11.7) 10/13/18 14:31 Neut % (Auto) 63.0 % (39.3-74.2) 10/13/18 14:31 Lymph % (Auto) 25.8 % (15.0-45.0) 10/13/18 14:31 [place] % (Auto) 9.4 % (4.5-13.0) 10/13/18 14:31 Eos % (Auto) 1.1 % (0.6-7.6) 10/13/18 14:31 Baso % (Auto) 0.5 % (0.3-1.7) 10/13/18 14:31 Nucleat RBC Rel Count 0.0 % (0.0-0.2) 10/13/18 14:31 Absolute Neuts (auto) 5.09 10^3/uL (1.70-6.50) 10/13/18 14:31 Absolute Lymphs (auto) 2.09 10^3/uL (1.00-3.00) 10/13/18 14:31 Absolute Monos (auto) 0.76 10^3/uL (0.30-0.80) 10/13/18 14:31 Absolute Eos (auto) 0.09 10^3/uL (0.03-0.40) 10/13/18 14:31 Absolute Basos (auto) 0.04 10^3/uL (0.02-0.10) 10/13/18 14:31 Absolute Nucleated RBC 0.00 10^3/uL (0-0.01) 10/13/18 14:31 Immature Gran % 0.2 % (0.0-1.1) 10/13/18 14:31 Immature Gran # 0.02 10^3/uL (0.00-0.10) 10/13/18 14:31 D-Dimer < 0.27 ug/mLFEU (0.00-0.50) 10/13/18 14:31 Sodium 140 mEq/L (135-145) 10/13/18 14:31 Potassium 4.2 mEq/L (3.3-5.0) 10/13/18 14:31 Chloride 105 mEq/L (97-110) 10/13/18 14:31 Carbon Dioxide 27 mEq/l (22-31) 10/13/18 14:31 Anion Gap 8 mEq/L (6-14) 10/13/18 14:31 BUN 21 mg/dL (7-23) 10/13/18 14:31 Creatinine 0.9 mg/dL (0.7-1.3) 10/13/18 14:31 Estimated GFR > 60 10/13/18 14:31 Glucose 246 mg/dL (70-100) H 10/13/18 14:31 Calcium 9.5 mg/dL (8.5-10.4) 10/13/18 14:31 POC Troponin I 0.00 ng/mL (0.00-0.08) 10/13/18 14:36 NT-Pro-B Natriuret Pep 188 pg/mL (0-125) H 10/13/18 14:31 Visualized and Interpreted Chest x-ray results: Yes Chest X-Ray results: no infiltrate Visualized and Interpreted EKG results: Yes EKG Interpretation: Positive for: normal sinsus rhythm, T waves inversion Assessment & Plan Assessment: Chest pain (Acute) 68 yo M with PMH of DM, untreated HTN presenting with chest pain # chest pain: patient with a heart score of 5 and several months history of intermittent chest pain without a prior w/u. Does have RF including poorly controlled DM, untreated HTN and family hx. Initial w/u unremarkable including trop, ecg and cxr. Will plan to monitor overnight on tele with serial ecg/ serial trops. If w/u remains negative will proceed with lexiscan MPI in am ( patient with gait instability and limited exercise tolerance) # htn: per patient it has always been high but he has not been on medications in the past, will start hydralazine PRN and monitor overnight, if remains elevated will need to discuss discharge on BP medication, patient somewhat reluctant to do that # DM2/insulin dependent: patient states his DM control has improved since starting insulin but glucose of 246 on arrival, will check A1c, SSI in addition to his home regimen # etoh abuse: at last hospitalization BAL of 291 and patient noting he drinks 1 bottle of wine every other day, he states he has cut down since then, no s/s of w/d or intoxication currently, will monitor # observation status Patient new to my care. Old records reviewed and summarized as above. Care plan reviewed with ER doctor including plans for stress test. Further hx obtained from patients present at bedside.
[2018-10-13] MEDS ORDERED: NON-FORMULARY NEW DRUG (Insulin Lispro [Humalog Kwikpen U-100] 0 UNIT) SQ SCH (17:30)
[2018-10-13] MEDS: hydrALAZINE 20 MG/ML VIAL IVP PRN (17:39)
[2018-10-13] MEDS: INSULIN LISPRO 100 UNIT/ML SC SCH (18:06)
[2018-10-13] MEDS ORDERED: IBUPROFEN 200 MG TAB PO ONE (19:45)
[2018-10-13] MEDS ORDERED: INSULIN GLARGINE 100 UNITS/ML UNIT SC SCH (21:00)
[2018-10-14] MEDS: hydrALAZINE 20 MG/ML VIAL IVP PRN (05:52)
[2018-10-14] MEDS: INSULIN LISPRO 100 UNIT/ML SC SCH ×2 (08:01→12:37)
[2018-10-14] MEDS ORDERED: ASPIRIN 325 MG TAB PO SCH (09:00)
[2018-10-14] MEDS ORDERED: REGADENOSON 0.4 MG/5 ML SYR IVP ONE (11:25)
[2018-10-14] MEDS ORDERED: LISINOPRIL 10 MG TAB PO SCH (13:00)
--- NOTE | 2018-10-14 13:28 | CPR ---
DATE OF PROCEDURE: 10/14/2018 PROCEDURE: Lexiscan nuclear stress test. REASON FOR TEST: Chest and back pain, family historyof coronary artery disease. Father [place] at age 38 . Resting EKG shows a sinus rhythm with occasional PACs. Blood pressure 158/84, heart rate 88, oxygen saturation 96%. No significant EKG changes. His QTcB is 503, QTcF with 470. STRESS PORTION: Lexiscan nuclear stress test. Lexiscan was injected rapidly, followed by saline flu sh. Cardiolite was then injected, followed by saline flush. He did note flushing and increased head ache. There were no EKG changes. Peak blood pressure 162/80, peak heart rate 114. He did complain of dizziness and flushing. RECOVERY: He did spontaneously recover. Recovery blood pressure 158/78, recovery heart rate 100, ox ygen saturation 99%. Symptoms are subsiding. At this time, he currently is stable for nuclear imaging. /[id number]/MODL
[2018-10-14 14:24] VITALS: BP 173/87
--- NOTE | 2018-10-14 14:47 | ASMTLACE ---
LACE Length of stay for Answers: 1 day current admission Acuity / Level of Answers: No Care: Did the patient have an inpatient admission? Comorbidities - select Answers: Diabetes (uncontrolled or all that apply controlled) # of Emergency department Answers: 1-2 visits in the last 6 months Score: 3 Date Signed: 10/14/2018 02:47 PM Electronically Signed By:Tiffani Austin RN
--- NOTE | 2018-10-14 14:50 | ASMTDCNOTE ---
Case Management Discharge Discharge Order Complete? Answers: Yes Patient to Obtain Answers: Independently Medications Transportation Arranged Answers: Family/Friends Discharge Comments Notes: No CM needs identified. Pt will D/C home with . Date Signed: 10/14/2018 02:49 PM Electronically Signed By:Tiffani Austin RN
--- NOTE | 2018-10-14 19:18 | PDDCSUM ---
Discharge Summary Discharge Summary: Date of Admission: 10/13/2018 Date of Discharge: 10/14/2018 Studies: 1. Lexiscan stress test with MPI Discharge Diagnoses: 1. Non-cardiac chest pain 2. Untreated hypertension 3. Insulin dependent diabetes 4. Peripheral neuropathy 5. Hyperlipidemia, LDL 104 6. H/o EtOH abuse Brief Hospital Course: 68 yo M with PMH of DM, untreated HTN presented with atypical chest pain. Serial troponin and ecgs were negative. A lexiscan stress w/MPI was negative for ischemia. Telemetry remained quiet. A d-dimer was negative. His chest pain did not recur. His pain did have a neuropathic component to it, which may be the etiology. He was started on lisinopril for persistently elevated BPs while inpatient. I encouraged him to regularly monitor and document his BP and to follow up with his PCP for a BMP in the next week or so. Medications: Please refer to EMR for complete list. Changes this admission include addition of lisinopril 10mg daily. Follow Up Plan: 1. PCP to monitor BP, check BMP (renal fxn, K) in 1-2 weeks after starting TYLER inhibitor 2. Consider addition of gabapentin to help with his neuropathic symptoms 3. Titrate insulin regimen as needed 4. Consider starting statin Physical Exam: Vitals reviewed, hypertensive with SBP 160s. Alert and oriented, rrr without m/r/g, lungs clear, abdomen soft, no leg edema or JVD.
== END 2018-10-14 15:06 | disposition home or self-care (01) ==
LOC: F2W 16:40
PROVIDERS: ADMIT Internal Medicine; ATTEND Internal Medicine
DX: R07.9 Chest pain, unspecified (principal); R94.31 Abnormal electrocardiogram [ECG] [EKG]; E11.9 Type 2 diabetes mellitus without complications; I10 Essential (primary) hypertension; E78.5 Hyperlipidemia, unspecified; G62.9 Polyneuropathy, unspecified; Z82.41 Family history of sudden cardiac death; Z87.891 Personal history of nicotine dependence; Z79.4 Long term (current) use of insulin
CPT/HCPCS: 71045; 78452; 93005; 93017; A9500; G0378; 84484-PO; J0360; J1815; J2785